=== PATIENT | male | born 1980 | race Caucasian/White ===

== ENCOUNTER → 2018-04-27 | Outpatient (CLI) | payer BC ==
--- NOTE | 2018-04-27 08:26 | US ---
EXAMINATION TYPE: US abdomen complete DATE OF EXAM: 04/27/2018 COMPARISON: CT 01/21/2014 CLINICAL HISTORY: N18.9 CKD. EXAM MEASUREMENTS: Liver Length: 18.2 cm Gallbladder Wall: 0.2 cm CBD: 0.5 cm Spleen: 12.0 cm Right Kidney: 11.4 x 3.7 x 4.5 cm Left Kidney: 10.7 x 5.2 x 5.7 cm Pancreas: Obscured by bowel gas Liver: Enlarged. Gallbladder: wnl Evidence for sonographic Munson's sign: No CBD: wnl as visualized, distal portion obscured by bowel gas Spleen: wnl Right Kidney: No hydronephrosis or masses seen Left Kidney: No hydronephrosis or masses seen Upper IVC: wnl Abd Aorta: wnl IMPRESSION: 1. Hepatomegaly at 18.2 cm
[2018-04-27 08:54] LABS: ALT 34 U/L (21-72); AST 33 U/L (17-59); Albumin 4.7 g/dL (3.5-5.0); Alkaline Phosphatase 36 U/L (38-126); Anion Gap 8 mmol/L; Blood Urea Nitrogen 14 mg/dL (9-20); Carbon Dioxide 29 mmol/L (22-30); Chloride 106 mmol/L (98-107); Glucose 97 mg/dL (74-99); Potassium 4.5 mmol/L (3.5-5.1); Sodium 143 mmol/L (137-145); Total Bilirubin 0.8 mg/dL (0.2-1.3); Total Protein 7.4 g/dL (6.3-8.2)
== END ==
LOC: RADUSWWP 06:51
PROVIDERS: ATTEND Internal Medicine Geriatric Medicine
DX: R16.0 Hepatomegaly, not elsewhere classified (principal); N18.9 Chronic kidney disease, unspecified
CPT/HCPCS: 36415; 76700; 80053